=== PATIENT | female | born 1965 | race African-American/Black ===

== ENCOUNTER 2019-03-19 01:58 | Emergency (ER) | payer MEDICAID, OTHER ==
[2019-03-19] MEDS ORDERED: NORMAL SALINE 1000 ML 1,000 ML IV ONE (03:08)
[2019-03-19] MEDS ORDERED: PANTOPRAZOLE SODIUM 40 MG VIAL IV ONE (03:36)
[2019-03-19] MEDS ORDERED: MAG HYDROX/AL HYDROX/SIMETH SUSP 30 ML UDCUP PO ONE (03:36)
[2019-03-19] MEDS ORDERED: LIDOCAINE 2% VISCOUS SOLN 20 ML UDCUP PO ONE (03:36)
[2019-03-19] MEDS ORDERED: METOCLOPRAMIDE HCL ORAL SOLN 10 MG/10 ML UDCUP PO ONE (03:36)
--- NOTE | 2019-03-19 03:43 | ER Document Report ---
ED General - General Chief Complaint: Abdominal Pain Stated Complaint: ABDOMINAL PAIN Time Seen by Provider: 03/19/19 02:53 Primary Care Provider: ALBA SANCHEZ MD [EMERITUS] - Follow up as needed HOLLIE ABDUL MD [ACTIVE STAFF] - Follow up in 3-5 days (call for appointment ) Notes: Patient is a 53-year-old female that presents to the emergency department for chief complaint of epigastric abdominal pain. Patient reports his been having this pain on and off for the past 5 days, seems be worse at night. She states it started in her left abdomen, and worked its way over to the right but mainly is in the epigastric region, describes as a sharp pain, and again is worse at night and laying down. She states she has had an EGD not too long ago those reported as negative according to the patient. She is not currently taking any medications for gastritis or GERD. She currently rates her pain as a 6 out of 10 describes it again as a sharp stabbing pain. Denies any lower abdominal pain, denies hematuria, dysuria or urinary frequency. She denies having any nausea, vomiting or diarrhea. Past Medical History: Denies chronic medical conditions Past Surgical History: EGD Social History: Denies tobacco, admits to rare alcohol use, denies illicit drug use. Family History: Reviewed and noncontributory for presenting illness Allergies: Reviewed, see documented allergy list. REVIEW OF SYSTEMS: Other than noted above, the 12 point review of systems was reviewed with the patient and were negative, all pertinent findings are included in the HPI. PHYSICAL EXAMINATION: Vital signs reviewed, nursing noted reviewed. GENERAL: Well-appearing, well-nourished and in no acute distress. HEAD: Atraumatic, normocephalic. EYES: Eyes appear normal, extraocular movements intact, sclera anicteric, conj unctiva are normal. ENT: nares patent, oropharynx clear without exudates. Moist mucous membranes. NECK: Normal range of motion, supple without lymphadenopathy LUNGS: Breath sounds clear to auscultation bilaterally and equal. No wheezes rales or rhonchi. HEART: Regular rate and rhythm without murmurs ABDOMEN: Soft, mild epigastric tenderness to palpation to the abdomen, no lower abdominal tenderness, normoactive bowel sounds. No rebound, guarding, or rigidity. No masses appreciated. EXTREMITIES: Nontender, good range of motion, no pitting or edema. NEUROLOGICAL: No focal neurological deficits. Moves all extremities spontaneously Motor and sensory grossly intact on exam. PSYCH: Normal mood, normal affect. SKIN: Warm, Dry, normal turgor, no rashes or lesions noted on exposed skin TRAVEL OUTSIDE OF THE [place] IN LAST 30 DAYS: No - Related Data Allergies/Adverse Reactions: No Known Drug Allergies Allergy (Verified 03/19/19 02:00) Past Medical History - Social History Smoking Status: Never Smoker Family History: Reviewed & Not Pertinent Physical Exam - Vital signs Vitals: Temp Pulse Resp BP Pulse Ox 98.4 F 84 22 H 155/87 H 100 03/19/19 02:04 03/19/19 02:04 03/19/19 02:04 03/19/19 02:04 03/19/19 02:04 Course - Re-evaluation Re-evalutation: Patient seen and examined vital signs reviewed. Laboratory data and/or imaging were ordered as appropriate for the patient's presenting symptoms and complaint, with consideration of any critical or life threatening conditions that may be associated with their obtained history and exam as noted above. Patient was treated with GI cocktail, and IV fluids Results were reviewed when available and demonstrated negative work-up overall, unremarkable blood work and urinalysis, negative lipase, troponin negative as well, and EKG was nonischemic pattern. The patient was re-evaluated and was improved after treatment with Carafate, and was given a small dose of morphine, and Zofran. Evaluation was most consistent with epigastric abdominal pain, likely gastritis versus peptic ulcer disease without evidence of bleeding, patient also discussed with me that she was having diarrhea frequently, particularly after eating, she may be having issues with IBS, but will leave this to gastroenterology to diagnose, patient is given a prescription for Protonix and Carafate and advised to follow-up. Results were discussed with the patient at this point, after careful consideration I feel that that patient can be discharged from the emergency department, the patient was educated treatments and reasons to return to the emergency department based on their presumed diagnosis as noted above, they were advised to followup with a primary care physician in 2-3 days. Patient was agreeable to plan of care. *Note is created using voice recognition software and may contain spelling, syntax or grammatical errors. Laboratory 03/19/19 03/19/19 03/19/19 03:15 03:50 03:50 WBC 6.2 RBC 4.47 Hgb 12.8 Hct 38.0 MCV 85 MCH 28.5 MCHC 33.6 RDW 13.9 Plt Count 272 Seg Neutrophils % 55.8 Lymphocytes % 34.1 Monocytes % 6.8 Eosinophils % 1.9 Basophils % 1.4 Absolute Neutrophils 3.5 Absolute Lymphocytes 2.1 Absolute Monocytes 0.4 Absolute Eosinophils 0.1 Absolute Basophils 0.1 Sodium 142.4 Potassium 3.9 Chloride 105 Carbon Dioxide 28 Anion Gap 9 BUN 9 Creatinine 0.86 Est GFR ( Amer) > 60 Est GFR (Non-Af Amer) > 60 Glucose 103 Calcium 9.3 Total Bilirubin 0.4 Direct Bilirubin 0.3 Neonat Total Bilirubin Not Reportable Neonat Direct Bilirubin Not Reportable Neonat Indirect Bili Not Reportable AST 18 ALT 20 Alkaline Phosphatase 109 Troponin I Total Protein 7.1 Albumin 4.0 Lipase 169.1 Urine Color YELLOW Urine Appearance CLEAR Urine pH 6.0 Ur Specific [place] 1.025 Urine Protein NEGATIVE Urine Glucose (UA) NEGATIVE Urine Ketones NEGATIVE Urine Blood NEGATIVE Urine Nitrite NEGATIVE Urine Bilirubin NEGATIVE Urine Urobilinogen NEGATIVE Ur Leukocyte Esterase NEGATIVE Urine WBC (Auto) 1 Urine RBC (Auto) 4 Urine Mucus (Auto) FEW Urine Ascorbic Acid 40 H 03/19/19 03:50 WBC RBC Hgb Hct MCV MCH MCHC RDW Plt Count Seg Neutrophils % Lymphocytes % Monocytes % Eosinophils % Basophils % Absolute Neutrophils Absolute Lymphocytes Absolute Monocytes Absolute Eosinophils Absolute Basophils Sodium Potassium Chloride Carbon Dioxide Anion Gap BUN Creatinine Est GFR ( Amer) Est GFR (Non-Af Amer) Glucose Calcium Total Bilirubin Direct Bilirubin Neonat Total Bilirubin Neonat Direct Bilirubin Neonat Indirect Bili AST ALT Alkaline Phosphatase Troponin I < 0.012 Total Protein Albumin Lipase Urine Color Urine Appearance Urine pH Ur Specific [place] Urine Protein Urine Glucose (UA) Urine Ketones Urine Blood Urine Nitrite Urine Bilirubin Urine Urobilinogen Ur Leukocyte Esterase Urine WBC (Auto) Urine RBC (Auto) Urine Mucus (Auto) Urine Ascorbic Acid - Vital Signs Vital signs: Temp Pulse Resp BP Pulse Ox 98.4 F 84 22 H 155/87 H 100 03/19/19 02:04 03/19/19 02:04 03/19/19 02:04 03/19/19 02:04 03/19/19 02:04 - Laboratory Result Diagrams: 03/19/19 03:50 03/19/19 03:50 Laboratory results interpreted by me: 03/19/19 03:15 Urine Ascorbic Acid 40 H - EKG Interpretation by Me Additional EKG results interpreted by me: EKG demonstrates sinus rhythm with a ventricular rate of 70 bpm, normal axis, normal intervals, no evidence of acute ischemia in this EKG, no ST elevation, no prior for comparison. Discharge - Discharge Clinical Impression: Epigastric pain Condition: Stable Disposition: HOME, SELF-CARE Instructions: Abdominal Pain ([facility]) Additional Instructions: Please take the medications prescribed to see if they will help benefit your pain, I strongly advise following up with gastroenterology if you continue to have the symptoms. Prescriptions: Pantoprazole Sodium [Protonix [address] Tablet] 40 mg PO DAILY #30 tablet.dr Sucralfate [Carafate 1 gm Tablet] 1 gm PO ACHS #120 tablet Referrals: ALBA SANCHEZ MD [EMERITUS] - Follow up as needed HOLLIE ABDUL MD [ACTIVE STAFF] - Follow up in 3-5 days (call for appointment )
[2019-03-19 03:52] LABS: APPEARANCE,URINE CLEAR; BILIRUBIN,URINE NEGATIVE (NEGATIVE); COLOR,URINE YELLOW; GLUCOSE, URINE NEGATIVE (NEGATIVE); KETONES,URINE NEGATIVE (NEGATIVE); LEUKOCYTE ESTERASE,URINE NEGATIVE (NEGATIVE); NITRITE,URINE NEGATIVE (NEGATIVE); PROTEIN,URINE NEGATIVE (NEGATIVE); URINE SPECIFIC GRAVITY 1.025; UROBILINOGEN,URINE NEGATIVE mg/dL (<2.0)
[2019-03-19 04:01] LABS: ABSOLUTE BASOPHILS # (AUTO) 0.1 10^3/uL (0.0-0.2); ABSOLUTE EOSINOPHILS # (AUTO) 0.1 10^3/uL (0.0-0.6); ABSOLUTE LYMPHOCYTES (AUTO) 2.1 10^3/uL (0.5-4.7); ABSOLUTE MONOCYTES (AUTO) 0.4 10^3/uL (0.1-1.4); ABSOLUTE NEUT (AUTO) 3.5 10^3/uL (1.7-8.2); BASOPHILS % (AUTO) 1.4 % (0-2); EOSINOPHILS % (AUTO) 1.9 % (0-6); HEMOGLOBIN 12.8 g/dL (12.0-15.5); LYMPHOCYTES % (AUTO) 34.1 % (13-45); MEAN CORPUSCULAR HEMOGLOBIN 28.5 pg (27.0-33.4); MEAN CORPUSCULAR HGB CONC 33.6 g/dL (32.0-36.0); MEAN CORPUSCULAR VOLUME 85 fl (80-97); MONOCYTES % (AUTO) 6.8 % (3-13); PLATELET COUNT 272 10^3/uL (150-450); RED BLOOD COUNT 4.47 10^6/uL (3.72-5.28); RED CELL DISTRIBUTION WIDTH 13.9 % (11.5-14.0); SEGMENTED NEUTROPHILS % (AUTO) 55.8 % (42-78); TOTAL CELLS COUNTED % (AUTO) 100 %; WHITE BLOOD COUNT 6.2 10^3/uL (4.0-10.5)
[2019-03-19 04:23] LABS: ALANINE AMINOTRANSFERASE 20 U/L (9-52); ALKALINE PHOSPHATASE 109 U/L (38-126); ANION GAP 9 (5-19); ASPARTATE AMINO TRANSFERASE 18 U/L (14-36); BILIRUBIN,DIRECT 0.3 mg/dL (0.0-0.4); BILIRUBIN,TOTAL 0.4 mg/dL (0.2-1.3); BLOOD UREA NITROGEN 9 mg/dL (7-20); CALCIUM 9.3 mg/dL (8.4-10.2); CARBON DIOXIDE 28 mmol/L (22-30); CHLORIDE 105 mmol/L (98-107); GLUCOSE 103 mg/dL (75-110); LIPASE 169.1 U/L (23-300); POTASSIUM 3.9 mmol/L (3.6-5.0); SODIUM 142.4 mmol/L (137-145); TOTAL PROTEIN 7.1 g/dL (6.3-8.2)
[2019-03-19] MEDS ORDERED: SUCRALFATE 1 GM TABLET PO ONE (04:52)
[2019-03-19] MEDS ORDERED: ONDANSETRON HCL INJ/PF 4 MG/2 ML SDV IV ONE (05:09)
[2019-03-19] MEDS ORDERED: MORPHINE SULFATE 10 MG/ML INJ IV ONE (05:09)
[2019-03-19 06:28] VITALS: BP 131/79
--- NOTE | 2019-03-19 10:22 | EKG REPORT ---
SEVERITY:- NORMAL ECG - SINUS RHYTHM : Confirmed by: Mike Wang 19-Mar-2019 10:22:11
== END 2019-03-19 06:28 | disposition home or self-care (01) ==
LOC: ER 01:58
DX: R10.13 Epigastric pain (principal); R10.816 Epigastric abdominal tenderness; R19.7 Diarrhea, unspecified
CPT/HCPCS: 93005; 99284; 96361; 96374; 96375; 36415; 83690; 85025; 80053; 81001; 84484; 93010; J3490; J2270; S0164; J2405; J7030